=== PATIENT | female | born 1970 | race Caucasian/White ===

== ENCOUNTER → 2017-05-29 | Outpatient (CLI) | payer OTHER | LOC: WI 11:16 | PROVIDERS: ATTEND Nurse Practitioner | DX: Z12.31 Encounter for screening mammogram for malignant neoplasm of breast (principal) | CPT/HCPCS: 77063; 77067 ==

== ENCOUNTER → 2017-06-27 | Outpatient (CLI) | payer OTHER ==
--- NOTE | 2017-06-27 18:42 | WOMENS IMAGING REPORT ---
EXAM DESCRIPTION: RIGHT DIAGNOSTIC MAMMO W/CAD; U/S BREAST UNILAT LIMITED COMPLETED DATE/TIME: 06/27/2017 8:36 am; 06/27/2017 9:37 am REASON FOR STUDY: INCONCLUSIVE; R92.2; RIGHT BREAST; R92.2 R92.2 INCONCLUSIVE MAMMOGRAM COMPARISON: Mammograms05/29/2017 TECHNIQUE: Cone compression craniocaudal and 90 mediolateral images of the breast recorded with dig ital acquisition. Right whole breast 90 mediolateral view. Right breast ultrasound was also performed LIMITATIONS: None. FINDINGS: BREAST: Right MASSES: Low-density well-circumscribed mammographic nodule, about 9 mm in diameter at the 1 o'clock p osition. This was subsequently shown to represent a breast parenchymal cyst at ultrasound. CALCIFICATIONS: There are calcifications in the right breast laterally 9 o'clock position which are s lightly variable in size shape and density. These are indeterminate for malignancy. Stereotactic bi opsy is recommended. ARCHITECTURAL DISTORTION: None. DEVELOPING DENSITY: None. ASYMMETRY: None noted. OTHER: No other significant findings. Read with the assistance of CAD. .[facility] - R2 Cenova Version 1.3 .[facility] Imaging - R2 Cenova Version 1.3 .[facility] Imaging - R2 Cenova Version 2.4 .[facility] [place]2 Cenova Version 2.4 .[facility] - R2 Solid Waste Analyst Version 9.2 Right breast ultrasound: At the 1 to 2 o'clock position, a 9 mm breast parenchymal cyst is present, which correlates with the mammograms. IMPRESSION: Benign cyst right deep breast 1 o'clock position Calcifications variable in size shape and density right breast laterally at the 9 o'clock position fo r which stereotactic biopsy is recommended BREAST DENSITY: b. There are scattered areas of fibroglandular density. BIRAD: 4 Suspicious. Biopsy should be considered. RECOMMENDATION: RECOMMENDED FOLLOW UP: Stereotactic biopsy for right breast calcifications laterally . SPECIFIC INTERVENTION/IMAGING/CONSULTATION RECOMMENDED:Stereotactic biopsy for right breast calcifica tions laterally COMMUNICATION:Results of today's mammograms and ultrasound were discussed with the patient. Stereota ctic biopsy was discussed with the patient. She is amenable to stereotactic biopsy here at [facility] COMMENT: The patient has been notified of the results by letter per MQSA requirements. Additional no tification policies are in place for contacting patient with suspicious or incomplete findings. Quality ID #[id number]: The [employer] recommends an annual screening mammogram for women aged 40 years or over. This facility utilizes a reminder system to ensure that all patients receive reminder letters, and/or direct phone calls for appointments. This includes reminders for routine scr eening mammograms, diagnostic mammograms, or other Breast Imaging Interventions when appropriate. Th is patient will be placed in the appropriate reminder system. The [employer] (ACR) has developed recommendations for screening MRI of the breast s in certain patient populations, to be used in conjunction with mammography. Breast MRI surveillanc e may be appropriate for women with more than 20% lifetime risk of developing breast cancer as deter mined by genetic testing, significant family history of the disease, or history of mantle radiation f or Hodgkins Disease. ACR Practice Guidelines 2008. TECHNICAL DOCUMENTATION: FINDING NUMBER: (1) ASSESSMENT: (1) JOB ID: [id number] [employer]- All Rights Reserved Reading location - IP/workstation name: [email or web address]
--- NOTE | 2017-06-27 18:42 | WOMENS IMAGING REPORT ---
EXAM DESCRIPTION: RIGHT DIAGNOSTIC MAMMO W/CAD; U/S BREAST UNILAT LIMITED COMPLETED DATE/TIME: 06/27/2017 8:36 am; 06/27/2017 9:37 am REASON FOR STUDY: INCONCLUSIVE; R92.2; RIGHT BREAST; R92.2 R92.2 INCONCLUSIVE MAMMOGRAM COMPARISON: Mammograms05/29/2017 TECHNIQUE: Cone compression craniocaudal and 90 mediolateral images of the breast recorded with dig ital acquisition. Right whole breast 90 mediolateral view. Right breast ultrasound was also performed LIMITATIONS: None. FINDINGS: BREAST: Right MASSES: Low-density well-circumscribed mammographic nodule, about 9 mm in diameter at the 1 o'clock p osition. This was subsequently shown to represent a breast parenchymal cyst at ultrasound. CALCIFICATIONS: There are calcifications in the right breast laterally 9 o'clock position which are s lightly variable in size shape and density. These are indeterminate for malignancy. Stereotactic bi opsy is recommended. ARCHITECTURAL DISTORTION: None. DEVELOPING DENSITY: None. ASYMMETRY: None noted. OTHER: No other significant findings. Read with the assistance of CAD. .[facility] - R2 Cenova Version 1.3 .[facility] Imaging - R2 Cenova Version 1.3 .[facility] Imaging - R2 Cenova Version 2.4 .[facility] [place] - R2 Cenova Version 2.4 .[facility] - R2 Paper Mill Supervisor Version 9.2 Right breast ultrasound: At the 1 to 2 o'clock position, a 9 mm breast parenchymal cyst is present, which correlates with the mammograms. IMPRESSION: Benign cyst right deep breast 1 o'clock position Calcifications variable in size shape and density right breast laterally at the 9 o'clock position fo r which stereotactic biopsy is recommended BREAST DENSITY: b. There are scattered areas of fibroglandular density. BIRAD: 4 Suspicious. Biopsy should be considered. RECOMMENDATION: RECOMMENDED FOLLOW UP: Stereotactic biopsy for right breast calcifications laterally . SPECIFIC INTERVENTION/IMAGING/CONSULTATION RECOMMENDED:Stereotactic biopsy for right breast calcifica tions laterally COMMUNICATION:Results of today's mammograms and ultrasound were discussed with the patient. Stereota ctic biopsy was discussed with the patient. She is amenable to stereotactic biopsy here at [facility] COMMENT: The patient has been notified of the results by letter per MQSA requirements. Additional no tification policies are in place for contacting patient with suspicious or incomplete findings. Quality ID #[id number]: [employer] recommends an annual screening mammogram for women aged 40 years or over. This facility utilizes a reminder system to ensure that all patients receive reminder letters, and/or direct phone calls for appointments. This includes reminders for routine scr eening mammograms, diagnostic mammograms, or other Breast Imaging Interventions when appropriate. Th is patient will be placed in the appropriate reminder system. The [employer] (ACR) has developed recommendations for screening MRI of the breast s in certain patient populations, to be used in conjunction with mammography. Breast MRI surveillanc e may be appropriate for women with more than 20% lifetime risk of developing breast cancer as deter mined by genetic testing, significant family history of the disease, or history of mantle radiation f or Hodgkins Disease. ACR Practice Guidelines 2008. TECHNICAL DOCUMENTATION: FINDING NUMBER: (1) ASSESSMENT: (1) JOB ID: [id number] [employer]- All Rights Reserved Reading location - IP/workstation name: [email or web address]
== END ==
LOC: WI 08:08
PROVIDERS: ATTEND Nurse Practitioner
DX: N60.01 Solitary cyst of right breast (principal)
CPT/HCPCS: 76642

== ENCOUNTER → 2017-07-10 | Day surgery (SDC) | payer OTHER ==
[~2017-07-10] MED LIST: LIDOCAINE 1%/EPINEPHRINE INJ 20 ML VIAL ONE
--- NOTE | 2017-07-16 18:13 | RADIOLOGY REPORT (SQ) ---
EXAM DESCRIPTION: STEREO BREAST BX; RIGHT DIG DX MAMMO NO CHG COMPLETED DATE/TIME: 07/10/2017 2:31 pm; 07/10/2017 2:32 pm REASON FOR STUDY: RT BREAST MASS; RT BREAST R92.1 MAMMOGRAPHIC CALCIFCN FOUND ON DIAGNOSTIC IMAGING OF B N63.0 UNSPECIFIED LUMP IN UNSPECIFIED BREAST COMPARISON: Multiple since 05/29/2017 TECHNIQUE: Vacuum-assisted stereotactic-guided biopsy of the lesion in the right breast. Serial prog ress stereotactic and single digital images acquired. PROCEDURE: The procedure was discussed with the patient, including possible complications such as bleeding, infection, nondiagnostic sample or possible findings such as atypical ductal hyperplasia wh ich would require additional surgery. Possible clip placement was explained. The patient agreed t o the procedure. The patient was placed prone on the stereotactic table. The lesion in the breast was localized ster eotactically. The skin of the breast was prepped in sterile fashion. Superficial and deep local an esthesia was provided. A small incision was made in the skin and the biopsy probe was advanced to t he target. Using the vacuum-assisted core biopsy device, multiple core specimens were obtained. Continuous low dose infusion of local anesthesia was used during the procedure. A specimen radiograph was obtained. The radiograph demonstrated calcifications of concern in the bio psy tissue. Using [id number] technique a pellet clip was deployed at the biopsy site. Mammographic image confirmed presence of the clip. The probe was then removed and hemostasis obtained with manua l compression. A compression bandage was applied. Postoperative instructions were explained to th e patient. POST-PROCEDURE TWO VIEW DIGITAL MAMMOGRAM: An additional two view mammogram was recorded in the [facility] mammographic suite. Marker clip is present at the biopsy site. LIMITATIONS: None. FINDINGS: PATHOLOGY: Fibrocystic changes, papillary apocrine metaplasia. Microcalcifications. Nega tive for atypia or malignancy CONCORDANT: Yes POST PROCEDURE MAMMOGRAMS FOR MARKER PLACEMENT: Yes IMPRESSION: SUCCESSFUL STEREOTACTIC-GUIDED BIOPSY OF THE LESION IN THE RIGHT BREAST. BIOPSY RESULT S ARE CONCORDANT WITH IMAGING FINDINGS. Benign calcifications. No atypia or malignancy. BI-RADS 2, benign findings FOLLOW-UP: Please resume bilateral screening mammography in July 2018 07/28/2012 NOTIFICATION: These results were discussed with the patient, 07/13/2017, 12 noon. She understands that this was a benign successful biopsy, and that she can return to yearly screening. COMMENT: Patient medication list reviewed: Yes- Quality ID# [id number]:Eligible professional attests to doc umenting in the medical record they obtained, updated, or reviewed the patient's current medications. TECHNICAL DOCUMENTATION: JOB ID: [id number] [employer]- All Rights Reserved Reading location - IP/workstation name: [email or web address]
== END ==
LOC: RAD 11:37
PROVIDERS: ATTEND Nurse Practitioner
PROC: 0HBT3ZX Excision of Right Breast, Percutaneous Approach, Diagnostic (ICD-10-PCS; principal; 2017-07-10)
DX: N60.11 Diffuse cystic mastopathy of right breast (principal); R92.1 Mammographic calcification found on diagnostic imaging of breast; N63.0 Unspecified lump in unspecified breast
CPT/HCPCS: 88305 ×2; 88342; 19081; J3490

== ENCOUNTER → 2018-12-03 | Outpatient (CLI) | payer OTHER ==
--- NOTE | 2018-12-03 10:48 | WOMENS IMAGING REPORT ---
EXAM DESCRIPTION: 3D SCREENING MAMMO BILAT COMPLETED DATE/TIME: 12/03/2018 9:40 am REASON FOR STUDY: Z12.31 ENCOUNTER FOR SCREENING MAMMOGRAM FOR MALIGNANT NEOPLASM OF BREAST Z12.31 ENCNTR SCREEN MAMMOGRAM FOR MALIGNANT NEOPLASM OF SHARMAINE COMPARISON: Digital diagnostic right breast mammogram dated 06/27/2017 and digital tomosynthesis bila teral screening mammogram dated 05/29/2017. EXAM PARAMETERS: Standard craniocaudal and mediolateral oblique views of each breast recorded using digital acquisition and breast tomosynthesis. Read with the assistance of CAD. .[facility] - [place] [employer] Tow [employer] Version 9.2 LIMITATIONS: None. FINDINGS: Findings present which are benign by mammographic criteria. No suspicious masses, calcific ations or architectural distortion. Pertinent benign findings: Status post right breast biopsy with biopsy marker clip in the mid lateral breast (report indicated). Stable nodule in the medial right breast. The left breast is slightly s maller in size than the right, stable finding. Benign mammographic findings may include one or more of the following: Smooth masses, popcorn/rim/coa rse calcifications, asymmetries, post-procedure changes, and lesions with long-standing stability. IMPRESSION: BENIGN MAMMOGRAPHIC FINDINGS. BIRADS 2 BREAST DENSITY: b. There are scattered areas of fibroglandular density. BIRAD: ASSESSMENT: 2 BENIGN FINDING(S) RECOMMENDATION: 1. ROUTINE SCREENING COMMENT: The patient has been notified of the results by letter per MQSA requirements. Additional no tification policies are in place for contacting patient with suspicious or incomplete findings. Quality ID #[id number]: The [employer] recommends an annual screening mammogram for women aged 40 years or over. This facility utilizes a reminder system to ensure that all patients receive reminder letters, and/or direct phone calls for appointments. This includes reminders for routine scr eening mammograms, diagnostic mammograms, or other Breast Imaging Interventions when appropriate. Th is patient will be placed in the appropriate reminder system. TECHNICAL DOCUMENTATION: FINDING NUMBER: (1) ASSESSMENT: (1) JOB ID: [id number] [employer]- All Rights Reserved Reading location - IP/workstation name: [email or web address]
== END ==
LOC: WI 09:17
PROVIDERS: ATTEND Nurse Practitioner
DX: Z12.31 Encounter for screening mammogram for malignant neoplasm of breast (principal)
CPT/HCPCS: 77063; 77067